=== PATIENT | female | born 1970 | race African-American/Black ===

== ENCOUNTER 2017-08-20 11:34 | Outpatient (CLI) | payer BC | END 2017-08-20 11:35 | disposition home or self-care (01) | LOC: BICMAMMO 11:34 | PROVIDERS: ATTEND Internal Medicine | DX: Z12.31 Encounter for screening mammogram for malignant neoplasm of breast (principal); R92.1 Mammographic calcification found on diagnostic imaging of breast | CPT/HCPCS: 77063; 77067 ==

== ENCOUNTER 2018-08-24 12:05 | Outpatient (CLI) | payer BC | END 2018-08-24 12:06 | disposition home or self-care (01) | LOC: BICMAMMO 12:05 | PROVIDERS: ATTEND Internal Medicine | DX: Z12.31 Encounter for screening mammogram for malignant neoplasm of breast (principal); R92.1 Mammographic calcification found on diagnostic imaging of breast | CPT/HCPCS: 77063; 77067 ==

== ENCOUNTER 2019-04-14 01:45 | Emergency (ER) | payer BC ==
[2019-04-14] MEDS ORDERED: Morphine 4 MG/ML VIAL ONE (02:07)
[2019-04-14] MEDS ORDERED: Ondansetron PF 4 MG/2 ML Vial ONE (02:07)
[2019-04-14 02:17] LABS: #Basophils 0.1 thou/uL (0.0-0.2); #Eosinphils 0.1 thou/uL (0.0-0.7); #Lymphocytes 2.4 thou/uL (1.20-3.40); #Monocytes 0.7 thou/uL (0.11-0.59); #Neutrophils 9.4 thou/uL (1.40-6.50); %Basophils 0.7 % (0.0-1.0); %Eosinophils 0.6 % (0.0-10.0); %Lymphocytes 18.9 % (21.0-51.0); %Monocytes 5.4 % (0.0-10.0); %Neutrophils 74.4 % (42.0-75.0); Hemoglobin 10.9 g/dL (12.0-16.0); Mean Corpuscular HGB CONC 32.3 g/dL (32.0-36.0); Mean Corpuscular Hemoglobin 24.7 pg (27.0-31.0); Mean Corpuscular Volume 76.6 fL (78.0-98.0); Mean Platelet Volume 8.9 fL (7.4-10.4); Platelet Count 278 thou/uL (130-400); RBC Distribution Width 15.4 % (11.5-14.5); White Blood Cell (WBC) Count 12.7 thou/uL (4.8-10.8)
[2019-04-14 02:34] LABS: BHCG - Serum Negative (NEGATIVE); Pregs Control Background? CLEAR/WHITE (CLR/WHITE); Pregs Control Bar Appear? YES (CONTROL BAR)
[2019-04-14 03:01] LABS: ALT (SGPT) 8 U/L (8-55); AST (SGOT) 14 U/L (5-34); Albumin 4.3 g/dL (3.5-5.0); Alkaline Phosphatase 60 U/L (40-150); Anion Gap 15 mmol/L (10-20); BUN (Urea Nitrogen) 9 mg/dL (7.0-18.7); Bilirubin, Total 0.3 mg/dL (0.2-1.2); CK (CPK) 105 U/L (29-168); Calc. Creatinine Clearance 0 mL/min (70-130); Calcium 10.4 mg/dL (7.8-10.44); Carbon Dioxide 17 mmol/L (22-29); Chloride 107 mmol/L (98-107); Estimated GFR-MDRD Greater than 90; Glucose 126 mg/dL (70-105); Lipase 14 U/L (8-78); Protein, Total 7.3 g/dL (6.0-8.3); Sodium 135 mmol/L (136-145)
--- NOTE | 2019-04-14 07:30 | RAD ---
CHEST 1 VIEW: Date: 04/14/19 INDICATION: Epigastric abdominal pain and chest pain. COMPARISON: Prior exam dated 11/01/15. FINDINGS: Midline sternotomy is stable. Heart size is normal. Lungs are clear. No acute osseous abnormality is evident. IMPRESSION: No acute cardiopulmonary abnormality. POS: BH
--- NOTE | 2019-04-14 07:34 | ULT ---
PRELIMINARY REPORT/[facility]/EMERGENCY AFTER HOURS PROCEDURE EXAM: US Abdomen Limited, Right Upper Quadrant EXAM DATE/TIME: 04/14/2019 2:27 AM CLINICAL HISTORY: 48 years old, female; Abdominal pain; Epigastric TECHNIQUE: Imaging protocol: Real-time ultrasound of the abdomen with image documentation. Examination was focused on the right upper quadrant. COMPARISON: No relevant prior studies available. FINDINGS: Liver: No acute findings. No mass. Gallbladder: Distended. Multiple gallstones. Positive [place] sign. No significant gallbladder wall thickening or pericholecystic fluid. Common bile duct: Measures 7.2 mm in diameter. Pancreas: Limited visualization due to bowel gas. Right kidney: No acute findings. No mass. No hydronephrosis. IMPRESSION: Cholelithiasis. Positive [place] sign. Distended gallbladder. No significant gallbladder wall thicken ing or pericholecystic fluid. Mild common bile duct dilation. Thank you for allowing us to participate in the care of your patient. Dictated and Authenticated by: Jasvir Cervantes MD 04/14/2019 3:17 AM Central Time ([place] & [place]) FINAL REPORT US Gallbladder RUQ History: Abdominal pain Comparison: None. Findings: Real-time grayscale and color evaluation of the right upper quadrant of the abdomen was per formed. Visualized portion of the aorta, IVC, and pancreas are unremarkable. Mild diffuse increased hepatic e chotexture. Portal vein is patent. Cholelithiasis without cholecystitis. No wall thickening or pericholecystic fluid. Common bile duct m easures 7 mm, upper limits of normal. Right kidney measures 11 x 5 x 4.6 cm without mass, hydronephrosis, or abnormal calcifications. Impression: 1. Cholelithiasis without cholecystitis. 2. Mild increased hepatic echotexture suggesting steatosis. This report is in agreement with preliminary report by Brian. Transcribed Date/Time: 04/14/2019 8:12 AM
--- NOTE | 2019-04-17 12:19 | EKG ---
Test Reason : Blood Pressure : / mmHG Vent. Rate : 078 BPM Atrial Rate : 078 BPM P-R Int : 184 ms QRS Dur : 094 ms QT Int : 368 ms P-R-T Axes : 049 -37 091 degrees QTc Int : 419 ms Normal sinus rhythm Possible Left atrial enlargement Left axis deviation Low voltage QRS Possible Anterolateral infarct , age undetermined Abnormal ECG Confirmed by ALIN BAKER M.D. ([id number]), telegraph editor SERINA ISAAC ([id number]) on 04/17/2019 12:19:18 PM Referred By: Confirmed By:ALIN BAKER M.D.
== END 2019-04-14 04:00 | disposition home or self-care (01) ==
LOC: ERS 01:45
DX: K80.20 Calculus of gallbladder without cholecystitis without obstruction (principal); I10 Essential (primary) hypertension; Z79.891 Long term (current) use of opiate analgesic; Z79.899 Other long term (current) drug therapy; Z79.82 Long term (current) use of aspirin
CPT/HCPCS: 36415; 71045; 76705; 80053; 82550; 83690; 84484; 84703; 85025; 93005; 96374; 96375; J2270; J2405

== ENCOUNTER 2019-06-16 09:13 | Outpatient (CLI) | payer BC ==
[2019-06-16 12:09] LABS: #Basophils 0.1 thou/uL (0.0-0.2); #Eosinphils 0.1 thou/uL (0.0-0.7); #Lymphocytes 2.9 thou/uL (1.20-3.40); #Monocytes 0.8 thou/uL (0.11-0.59); #Neutrophils 4.2 thou/uL (1.40-6.50); %Basophils 0.9 % (0.0-1.0); %Eosinophils 1.7 % (0.0-10.0); %Lymphocytes 35.7 % (21.0-51.0); %Monocytes 9.4 % (0.0-10.0); %Neutrophils 52.4 % (42.0-75.0); Hemoglobin 10.2 g/dL (12.0-16.0); Mean Corpuscular HGB CONC 31.6 g/dL (32.0-36.0); Mean Corpuscular Hemoglobin 24.7 pg (27.0-31.0); Mean Corpuscular Volume 78.2 fL (78.0-98.0); Mean Platelet Volume 8.8 fL (7.4-10.4); Platelet Count 301 thou/uL (130-400); RBC Distribution Width 15.7 % (11.5-14.5); Red Blood Cell (RBC) Count 4.14 mill/uL (4.20-5.40)
[2019-06-16 12:17] LABS: BHCG - Serum Negative (NEGATIVE); Pregs Control Background? CLEAR/WHITE (CLR/WHITE); Pregs Control Bar Appear? YES (CONTROL BAR)
[2019-06-16 12:19] LABS: ALT (SGPT) 10 U/L (8-55); AST (SGOT) 17 U/L (5-34); Albumin 4.2 g/dL (3.5-5.0); Alkaline Phosphatase 58 U/L (40-110); Anion Gap 8 mmol/L (10-20); BUN (Urea Nitrogen) 6 mg/dL (7.0-18.7); Bilirubin, Direct 0.2 mg/dL (0.1-0.3); Bilirubin, Total 0.4 mg/dL (0.2-1.2); Calc. Creatinine Clearance 0 mL/min (70-130); Calcium 8.9 mg/dL (7.8-10.44); Carbon Dioxide 25 mmol/L (22-29); Chloride 112 mmol/L (98-107); Estimated GFR-MDRD Greater than 90; Glucose 94 mg/dL (70-105); Potassium 4.8 mmol/L (3.5-5.1); Protein, Total 6.8 g/dL (6.0-8.3); Sodium 140 mmol/L (136-145)
== END 2019-06-16 09:14 | disposition home or self-care (01) ==
LOC: LABBT 09:13
PROVIDERS: ATTEND Surgery
DX: Z01.812 Encounter for preprocedural laboratory examination (principal); K80.80 Other cholelithiasis without obstruction
CPT/HCPCS: 80048; 80076; 84703; 85025

== ENCOUNTER 2019-06-18 12:15 | Day surgery (SDC) | payer BC ==
[2019-06-16 10:54] VITALS: BMI 39.4
[~2019-06-18 12:15] MED LIST: Glycopyrrolate 0.2 MG/ML 5 ML SYRINGE ONE; Ketorolac Tromethamine 30 MG/ML VIAL ONE; Lidocaine 1% PF 5 ML VIAL ONE; PROPOFOL 200 MG/20 ML VIAL ONE; Rocuronium Bromide 10 MG/ML (10ML VIAL) ONE
[2019-06-18] MEDS ORDERED: Lidocaine 1% w/Epinephrine 1:100K 20 ML VIAL ONE (14:58)
[2019-06-18] MEDS ORDERED: Bupivacaine 0.25% HCL 30 ML VIAL ONE (14:58)
[2019-06-18] MEDS ORDERED: Fentanyl 100 MCG/2 ML VIAL ONE ×2 (15:03→16:38)
[2019-06-18] MEDS ORDERED: Lidocaine 2% Jelly 5 ML TUBE ONE (15:03)
[2019-06-18] MEDS ORDERED: Ondansetron PF 4 MG/2 ML Vial ONE (16:49)
[2019-06-18] MEDS ORDERED: HYDROcodone/Acetaminophen 5/325 mg Tablet ONE (18:02)
[2019-06-18] MEDS ORDERED: Ondansetron ODT 4 MG TAB ONE (18:37)
--- NOTE | 2019-06-18 22:26 | OP ---
DATE OF PROCEDURE: 06/18/2019 PREOPERATIVE DIAGNOSIS: Symptomatic gallstones. POSTOPERATIVE DIAGNOSES: Symptomatic gallstones. PROCEDURE PERFORMED: Laparoscopic cholecystectomy. ANESTHESIA: General. ESTIMATED BLOOD LOSS: Minimal. COMPLICATIONS: None. SPECIMEN: Gallbladder. FINDINGS: Chronic cholecystitis. PROCEDURE IN DETAIL: The patient was taken to the operating room and laid supine on the operating room table. After general anesthetic was obtained, the abdomen was prepped and draped in a sterile fashion. A curved incision was made below the umbilicus. Cautery was used to dissect down to the umbilical fascia. Umbilical fascia was incised and held up using a Sreedhar. The abdominal cavity was entered using a Fern clamp. Holding stitch of Vicryl was placed on each side of the fascia. Hull trocar was placed. High-flow pneumoperitoneum was obtained. An upper midline 5 mm port and 2 right upper quadrant 5 mm ports were placed under direct camera visualization. The gallbladder was retracted from the gallbladder fossa. The peritoneum of the gallbladder was opened anteriorly and posteriorly. The critical view triangle was seen showing only the cystic duct and cystic artery branching from medial to lateral. There were no other branching structures. Two clips were placed proximally on the cystic duct and one laterally. It was cut using laparoscopic scissors. The cystic artery was taken in the same way. Electrocautery was then used to dissect the gallbladder out of the gallbladder fossa. The gallbladder was placed in an Endo catch bag and brought out through the [place]. There was no bleeding or bile in the liver bed. The cystic duct stump and cystic artery stump were intact, without evidence of extravasation or bleeding. All port sites were infiltrated using local anesthesia. All ports were removed under camera visualization. Pneumoperitoneum was let down. The Vicryl was used to close the fascial defect below the umbilicus. All incisions were irrigated and closed using 4-0 Monocryl and Dermabond. The patient was en route to Recovery in stable condition. All instrument counts, needle counts and lap counts were correct. Job ID: [id number]
== END 2019-06-18 18:50 | disposition home or self-care (01) ==
LOC: SDC 12:15
PROVIDERS: ATTEND Surgery
PROC: 0FT44ZZ Resection of Gallbladder, Percutaneous Endoscopic Approach (ICD-10-PCS; principal; 2019-06-18)
DX: K80.10 Calculus of gallbladder with chronic cholecystitis without obstruction (principal); Z79.82 Long term (current) use of aspirin; Z79.899 Other long term (current) drug therapy; Z88.8 Allergy status to other drugs, medicaments and biological substances
CPT/HCPCS: 88304; J0690; J1885; J2001; J2405; J2704; J3010; Q0162; S0020

== ENCOUNTER 2019-06-22 14:18 | Observation (INO) | payer BC ==
[~2019-06-22 14:18] MED LIST changes: -Glycopyrrolate 0.2 MG/ML 5 ML SYRINGE ONE; +Iopamidol 370 76% 100 ML VIAL ONE; -Ketorolac Tromethamine 30 MG/ML VIAL ONE; -Lidocaine 1% PF 5 ML VIAL ONE; -PROPOFOL 200 MG/20 ML VIAL ONE; -Rocuronium Bromide 10 MG/ML (10ML VIAL) ONE
[2019-06-22 15:29] LABS: #Basophils 0.1 thou/uL (0.0-0.2); #Eosinphils 0.2 thou/uL (0.0-0.7); #Lymphocytes 2.8 thou/uL (1.20-3.40); #Monocytes 1.2 thou/uL (0.11-0.59); %Basophils 0.8 % (0.0-1.0); %Eosinophils 1.3 % (0.0-10.0); %Lymphocytes 23.1 % (21.0-51.0); %Monocytes 9.7 % (0.0-10.0); %Neutrophils 65.2 % (42.0-75.0); Hemoglobin 10.5 g/dL (12.0-16.0); Mean Corpuscular HGB CONC 31.4 g/dL (32.0-36.0); Mean Corpuscular Hemoglobin 24.1 pg (27.0-31.0); Mean Corpuscular Volume 76.7 fL (78.0-98.0); Mean Platelet Volume 8.6 fL (7.4-10.4); Platelet Count 346 thou/uL (130-400); RBC Distribution Width 15.8 % (11.5-14.5); Red Blood Cell (RBC) Count 4.35 mill/uL (4.20-5.40); White Blood Cell (WBC) Count 12.2 thou/uL (4.8-10.8)
[2019-06-22 15:51] LABS: ALT (SGPT) 72 U/L (8-55); AST (SGOT) 188 U/L (5-34); Albumin 4.1 g/dL (3.5-5.0); Alkaline Phosphatase 260 U/L (40-110); Anion Gap 11 mmol/L (10-20); BUN (Urea Nitrogen) 6 mg/dL (7.0-18.7); Bilirubin, Total 1.3 mg/dL (0.2-1.2); Calc. Creatinine Clearance 0 mL/min (70-130); Carbon Dioxide 26 mmol/L (22-29); Chloride 106 mmol/L (98-107); Estimated GFR-MDRD Greater than 90; Globulin 2.8 g/dL (2.4-3.5); Glucose 125 mg/dL (70-105); Lipase 5 U/L (8-78); Potassium 4.4 mmol/L (3.5-5.1); Protein, Total 6.9 g/dL (6.0-8.3); Sodium 139 mmol/L (136-145)
--- NOTE | 2019-06-22 16:20 | CT ---
CT OF THE ABDOMEN AND PELVIS WITH IV CONTRAST INDICATION: Abdominal pain status post laparoscopic cholecystectomy 4 days ago COMPARISON: None FINDINGS: ABDOMEN: Lung bases: Small bilateral pleural effusions with bibasilar atelectasis Liver: Mild intrahepatic and extrahepatic biliary ductal dilatation. Gallbladder: Surgically absent Pancreas: Normal. Adrenal glands: Normal. Spleen: Normal. Kidneys and ureters: Normal. No hydronephrosis. Vasculature: Normal. Lymph nodes:No lymphadenopathy. Free fluid in abdomen:No free fluid is evident. PELVIS: Small and large bowel: There is a mild amount of retained stool within the colon. There are a few sca ttered colonic diverticula. Appendix:Normal Bladder: Partially decompressed Rectal and perirectal soft tissues:Normal. Reproductive structures: Normal. Free fluid in pelvis: Mild free fluid. Single surgical clip within the cul-de-sac. Lymphadenopathy pelvis: No enlarged lymph nodes. Scattered phleboliths within the lower pelvis. Osseous structures: No acute osseous abnormality. No destructive osteolytic or osteoblastic lesion i s identified. There is scattered degenerative and osteoarthritic changes. Soft tissues:Normal. IMPRESSION: 1. Cholecystectomy. Mild intrahepatic and extra hepatic biliary ductal dilatation consistent with a p ostcholecystectomy state. No large fluid collection seen within the abdomen. 2. Mild free fluid in the pelvis. 3. Small bilateral pleural effusions with bibasilar atelectasis. 4. Mild amount of retained stool within the colon.
[2019-06-22 16:47] LABS: Bilirubin Negative (Negative); Blood, Urine Trace (Negative); Clarity Turbid (Clear); Glucose, Urine (Dipstick) Normal (Negative); Leukocyte Negative Leu/uL (Negative); Nitrite Negative (Negative); Protein, Urine (Dipstick) 20 mg/dL (Neg-Trace); WBC/HPF 0-3 HPF (0-3)
[2019-06-22 16:50] LABS: Bacteria/HPF 1+ HPF (None Seen)
--- NOTE | 2019-06-22 17:03 | HP ---
CHIEF COMPLAINT: Abdominal pain, status post laparoscopic cholecystectomy. HISTORY OF PRESENT ILLNESS: This is a 48-year-old female, who underwent laparoscopic cholecystectomy on last Fred, complaining of severe acute onset of sharp upper abdominal pain. She has not had any nausea or vomiting. She has not had a bowel movement since surgery. She was seen in the emergency department today, where CT scan shows no obvious postop complication. She does have impaction of stool throughout her colon. PAST MEDICAL HISTORY: Please see previous H and P. PAST SURGICAL HISTORY: Please see previous H and P. PHYSICAL EXAMINATION: VITAL SIGNS: Her blood pressure is 137/84. Her pulse is 78. CHEST: Clear. HEART: Regular rate. ABDOMEN: Soft and minimally diffusely tender, but she is very distended. IMAGING STUDIES: CT scan reviewed showing only impaction of stool and postop changes. ASSESSMENT: Severe postop abdominal pain. CT shows impaction of stool. She has minimal elevation of her liver function tests now. PLAN: Admit, rehydrate, magnesium citrate. Recheck labs in the morning. If pain not improved, HIDA scan to rule out a bile leak. Job ID: [id number]
[2019-06-22] MEDS ORDERED: Calcium Carbonate 500 MG ChewTAB PO PRN (19:42)
[2019-06-22] MEDS ORDERED: traMADol HCl 50 MG TAB PO PRN (19:42)
[2019-06-22] MEDS ORDERED: Dextrose 5% in Water 1,000 ML IV PRN (19:42)
[2019-06-22] MEDS ORDERED: Morphine 2 MG/ML SYRINGE SLOW IVP PRN (19:42)
[2019-06-22] MEDS ORDERED: Morphine 4 MG/ML VIAL SLOW IVP PRN (19:42)
[2019-06-22] MEDS ORDERED: Acetaminophen 1,000 MG in Premix Bag 1 BAG IVPB PRN (19:42)
[2019-06-22] MEDS ORDERED: Dextrose 50% Abboject 50 ML SYRINGE SLOW IVP PRN (19:42)
[2019-06-22] MEDS ORDERED: Magnesium Citrate 300 ML BOT PO SCH (19:42)
[2019-06-22] MEDS ORDERED: Promethazine HCl 25 MG/ML VIAL IM PRN (19:42)
[2019-06-22] MEDS ORDERED: Ondansetron PF 4 MG/2 ML Vial IVP PRN (19:42)
[2019-06-22] MEDS ORDERED: Mag-Al 1200 mg/1200 mg/30 ML UDCUP PO PRN (19:42)
[2019-06-22] MEDS ORDERED: hydrALAZINE 20 MG/ML VIAL SLOW IVP PRN (19:42)
[2019-06-22] MEDS: Carvedilol 6.25 MG TAB PO SCH (19:44)
[2019-06-22] MEDS: Sodium Chloride 0.9% 1,000 ML IV SCH (20:27)
[2019-06-22] MEDS: Famotidine 20 MG TAB PO SCH (20:32)
[2019-06-22] MEDS ORDERED: ENTRESTO PO SCH (21:00)
[2019-06-22] MEDS: Famotidine/PF 20 mg/2ml Vial SLOW IVP SCH (21:13)
[2019-06-22 21:16] VITALS: BMI 40.3
[2019-06-23] MEDS: Sodium Chloride 0.9% 1,000 ML IV SCH (03:46)
[2019-06-23 06:07] LABS: #Eosinphils 0.1 thou/uL (0.0-0.7); #Lymphocytes 1.9 thou/uL (1.20-3.40); #Monocytes 0.8 thou/uL (0.11-0.59); #Neutrophils 5.3 thou/uL (1.40-6.50); %Eosinophils 1.7 % (0.0-10.0); %Lymphocytes 23.4 % (21.0-51.0); %Monocytes 10.2 % (0.0-10.0); %Neutrophils 64.6 % (42.0-75.0); Hemoglobin 9.7 g/dL (12.0-16.0); Mean Corpuscular HGB CONC 31.2 g/dL (32.0-36.0); Mean Corpuscular Hemoglobin 24.2 pg (27.0-31.0); Mean Corpuscular Volume 77.6 fL (78.0-98.0); Mean Platelet Volume 8.9 fL (7.4-10.4); Platelet Count 280 thou/uL (130-400); RBC Distribution Width 15.7 % (11.5-14.5); Red Blood Cell (RBC) Count 3.98 mill/uL (4.20-5.40); White Blood Cell (WBC) Count 8.2 thou/uL (4.8-10.8)
[2019-06-23 06:28] LABS: ALT (SGPT) 175 U/L (8-55); AST (SGOT) 302 U/L (5-34); Albumin 3.4 g/dL (3.5-5.0); Alkaline Phosphatase 206 U/L (40-110); Anion Gap 11 mmol/L (10-20); BUN (Urea Nitrogen) Less than 4 mg/dL (7.0-18.7); Bilirubin, Total 1.6 mg/dL (0.2-1.2); Calc. Creatinine Clearance 180 mL/min (70-130); Calcium 8.7 mg/dL (7.8-10.44); Carbon Dioxide 22 mmol/L (22-29); Chloride 109 mmol/L (98-107); Estimated GFR-MDRD Greater than 90; Globulin 2.6 g/dL (2.4-3.5); Glucose 94 mg/dL (70-105); Potassium 3.8 mmol/L (3.5-5.1); Sodium 138 mmol/L (136-145)
[2019-06-23] MEDS: Famotidine 20 MG TAB PO SCH (08:39)
[2019-06-23] MEDS: Carvedilol 6.25 MG TAB PO SCH (08:39)
[2019-06-23] MEDS: Famotidine/PF 20 mg/2ml Vial SLOW IVP SCH (08:43)
[2019-06-23] MEDS ORDERED: Sacubitril 49 MG/Valsartan 51 MG TABLET PO SCH (09:00)
[2019-06-23] MEDS ORDERED: Aspirin Chewable 81 MG TAB PO SCH (09:00)
--- NOTE | 2019-06-23 10:51 | NM ---
Radionucleotide hepatobiliary scan HISTORY: Mild biliary dilatation. Abdominal pain. Recent cholecystectomy. FINDINGS: Early images show physiologic uptake of radiotracer throughout the hepatic parenchyma. Gall bladder is surgically absent. Uptake is apparent within the small bowel at 17 minutes. No uptake is seen outside of the liver, biliary system, or bowel. IMPRESSION: No evidence of biliary leak or biliary obstruction. Status post cholecystectomy.
[2019-06-23] MEDS ORDERED: Acetaminophen 500 MG TAB PO PRN (11:06)
[2019-06-23 11:22] VITALS: BP 120/78; TEMP 98.2
== END 2019-06-23 12:52 | disposition home or self-care (01) ==
LOC: ERS 14:18 → SURG A 19:29
PROVIDERS: ADMIT Surgery; ATTEND Surgery
DX: T81.89XA Other complications of procedures, not elsewhere classified, initial encounter (principal); R10.11 Right upper quadrant pain; J90 Pleural effusion, not elsewhere classified; Z88.5 Allergy status to narcotic agent; Z88.8 Allergy status to other drugs, medicaments and biological substances; Z95.1 Presence of aortocoronary bypass graft; Z79.82 Long term (current) use of aspirin; Z79.899 Other long term (current) drug therapy
CPT/HCPCS: 36415; 74177; 78226; 80053; 81003; 81015; 83605; 83690; 85025; 96361; 96374; 96375; 96376; A9537; G0378; J2270; Q9967